=== PATIENT | male | born 1950 | race Two or more races ===

== ENCOUNTER → 2019-04-13 | Outpatient (CLI) | payer MEDICAID | END | disposition home or self-care (01) | LOC: Rad HDHVI 13:46 | PROVIDERS: ATTEND Internal Medicine | DX: E78.5 Hyperlipidemia, unspecified (principal); I12.9 Hypertensive chronic kidney disease with stage 1 through stage 4 chronic kidney disease, or unspecified chronic kidney disease; N18.4 Chronic kidney disease, stage 4 (severe) | CPT/HCPCS: 93306; 93880 ==

== ENCOUNTER → 2019-05-31 | Outpatient (CLI) | payer MEDICAID ==
[~2019-05-31] VITALS: Ht 157.5 cm; Wt 62.6 kg
[~2019-05-31] MED LIST: ADENOSINE 53 MG in GIVE UN-DILUTED 0 ML IV ONE; ADENOSINE 90 MG/30 ML INJ IV ONE; ASPI-404 PO; ATOR20TA PO; CALC0.25 PO; FERR1TAB17 PO; FURO40TA4 PO; HYDR-4833 PO; KEP500T PO
== END | disposition home or self-care (01) ==
LOC: Rad HDHVI 13:42
PROVIDERS: ATTEND Internal Medicine Cardiovascular Disease
DX: E78.5 Hyperlipidemia, unspecified (principal); R07.89 Other chest pain; R09.89 Other specified symptoms and signs involving the circulatory and respiratory systems; G89.4 Chronic pain syndrome; I73.9 Peripheral vascular disease, unspecified; F17.200 Nicotine dependence, unspecified, uncomplicated; N25.81 Secondary hyperparathyroidism of renal origin; F32.0 Major depressive disorder, single episode, mild; I12.9 Hypertensive chronic kidney disease with stage 1 through stage 4 chronic kidney disease, or unspecified chronic kidney disease; E11.22 Type 2 diabetes mellitus with diabetic chronic kidney disease; N18.4 Chronic kidney disease, stage 4 (severe); Z99.2 Dependence on renal dialysis
CPT/HCPCS: 78452; 93005; 96374; 96375; A9500

== ENCOUNTER → 2019-06-20 | Outpatient (CLI) | payer MEDICAID ==
[~2019-06-20] MED LIST changes: -ADENOSINE 53 MG in GIVE UN-DILUTED 0 ML IV ONE; -ADENOSINE 90 MG/30 ML INJ IV ONE
[2019-06-20 09:50] VITALS: BP 111/71
[2019-06-20 10:11] VITALS: BP 108/62
--- NOTE | 2019-06-20 10:11 | NUR ---
PRE-OP FOR LEFT HEART CATH FOR 06/22/19. Pre-Op Discharge Summary: See e-MAR for any medications given for this visit. Pre-op orders received and carried out per MD of EKG, LABS and chest xrays. Patient given a copy of EKG with instructions to go to [facility] out patient for further follow up care.
[2019-06-20 12:09] LABS: Basophils # (auto) 0 uL; Mean Corpuscular Volume 98.7 fL (80.0-100.0); Red Blood Cells 3.25 10^6/uL (4.5-5.90); White Blood Cell 6.6 10^3/uL (4.4-10.8)
[2019-06-20 12:10] LABS: Basophils % (auto) 0.6 % (0.0-2.0); Eosinophils # (auto) 0.5 uL; Hemoglobin 11.4 g/dL (13.5-17.5); Lymphocytes % (auto) 30.9 % (10.0-50.0); Mean Corpuscular Hemoglobin 35.3 pg (28.0-32.0); Mean Corpuscular Hgb Conc. 35.7 g/dL (32.0-36.0); Monocytes # (auto) 0.5 uL; Monocytes % (auto) 7.7 % (0.0-12.0); Neutrophils # (auto) 3.6 uL; Neutrophils % (auto) 53.8 % (37.0-80.0); Platelet Count (auto) 208 10^3/uL (140-450); Red Cell Distribution Width 14.6 % (11.8-14.3)
[2019-06-20 12:23] LABS: INR < 0.93 (0.9-1.15)
[2019-06-20 12:54] LABS: BUN/Creatinine Ratio 9.3; Calcium 8.1 mg/dL (8.5-10.1); Potassium 3.6 mmol/L (3.5-5.1)
== END | disposition home or self-care (01) ==
LOC: Rad HDHVI 09:34
PROVIDERS: ATTEND Internal Medicine Cardiovascular Disease
DX: Z01.812 Encounter for preprocedural laboratory examination (principal); E78.5 Hyperlipidemia, unspecified; I10 Essential (primary) hypertension; I25.10 Atherosclerotic heart disease of native coronary artery without angina pectoris
CPT/HCPCS: 36415; 80048; 85025; 85610; 85730; 93005; G0463

== ENCOUNTER 2019-06-22 08:13 | Day surgery (SDC) | payer MEDICAID ==
[~2019-06-22] VITALS: Ht 157.5 cm; Wt 64.4 kg
[2019-06-22] MEDS ORDERED: SODIUM CHL 0.9% 0 ML ONE (11:03)
[2019-06-22] MEDS ORDERED: fentaNYL CITRATE 100 MCG/2 ML VL ONE (11:03)
[2019-06-22] MEDS ORDERED: ANGIOMAX 250 MG VIAL IV ONE (11:03)
[2019-06-22] MEDS ORDERED: MIDAZOLAM HCL 1MG/1ML-2 ML VIAL ONE (11:03)
[2019-06-22] MEDS ORDERED: LIDOCAINE 2%HCL (LOCAL ANESTH.) INJ 20ML MDV ONE (11:06)
[2019-06-22] MEDS ORDERED: IOHEXOL 350 MG/ML 100ML IJ ONE (11:06)
[2019-06-22] MEDS ORDERED: IODIXANOL 320MG/ML 100ML BTL IV ONE (11:17)
[2019-06-22] MEDS ORDERED: SODIUM CHL 0.9% 50 ML ONE (11:25)
[2019-06-22] MEDS ORDERED: NITROGLYCERIN 5MG/ML 10ML VIAL IV ONE (11:25)
[2019-06-22] MEDS ORDERED: hydrALAZINE HCL 20 MG/ML VL ONE (11:29)
== END 2019-06-22 14:23 | disposition home or self-care (01) ==
LOC: CATH 08:13
PROVIDERS: ATTEND Internal Medicine
DX: I25.10 Atherosclerotic heart disease of native coronary artery without angina pectoris (principal); I12.0 Hypertensive chronic kidney disease with stage 5 chronic kidney disease or end stage renal disease; E11.22 Type 2 diabetes mellitus with diabetic chronic kidney disease; N18.6 End stage renal disease; I70.8 Atherosclerosis of other arteries; M19.012 Primary osteoarthritis, left shoulder; M19.011 Primary osteoarthritis, right shoulder; E78.5 Hyperlipidemia, unspecified; Z79.82 Long term (current) use of aspirin; Z79.899 Other long term (current) drug therapy; Z87.891 Personal history of nicotine dependence; Z99.2 Dependence on renal dialysis
CPT/HCPCS: 93458; J0360; J1644; J2250; J3010; J3490; J7030; Q9967; 99152